=== PATIENT | female | born 1975 | race Caucasian/White ===

== ENCOUNTER 2019-02-17 09:03 | Emergency (ER) | payer MEDICAID ==
--- NOTE | 2019-02-17 10:20 | UC ---
Dental HPI - HPI Summary HPI Summary: 43 year old female with h/o poor dentation, cracked tooth x 2 weeks presents with right sided facial sweling x 24 hours, mild pain over jawline, no fever, chills. no difficulty breathing, swallowing, headache. Denies other symptoms. - History of Current Complaint Chief Complaint: UCGeneralIllness Stated Complaint: REACTION RT SIDE FACE Time Seen by Provider: 02/17/19 10:07 Hx Obtained From: Patient Hx Last Menstrual Period: 02/03/19 ?: No Onset/Duration: Sudden Onset, Lasting Days Severity: Mild Pain Intensity: 0 Pain Scale Used: 0-10 Numeric - Allergies/Home Medications Allergies/Adverse Reactions: Allergies Allergy/AdvReac Type Severity Reaction Status Date / Time No Known Allergies Allergy Verified 02/17/19 09:24 PMH/Surg Hx/FS Hx/Imm Hx Previously Healthy: Yes - Surgical History Surgical History: Yes Surgery Procedure, Year, and Place: 1 csec and a tubal - Social History Alcohol Use: Occasionally Substance Use Type: None Smoking Status (MU): Heavy Every Day Tobacco Smoker Review of Systems All Other Systems Reviewed And Are Negative: Yes Constitutional: Positive: Negative Skin: Positive: Other - patient has very red face, b/l, states this is normal for her ENT: Positive: Dental Pain, Other - facial swelling, right sided Is Patient Immunocompromised?: No Physical Exam Triage Information Reviewed: Yes Appearance: Well-Appearing, No Pain Distress, Well-Nourished Vital Signs: Initial Vital Signs Temp 96.4 F 02/17/19 09:20 Pulse 86 02/17/19 09:20 Resp 16 02/17/19 09:20 BP 146/96 02/17/19 09:20 Pulse Ox 100 02/17/19 09:20 Vital Signs Reviewed: Yes Eyes: Positive: Conjunctiva Clear. Negative: Conjunctiva Inflamed ENT: Positive: Pharynx normal, TMs normal, Dental tenderness - lower jaw line with fullness over internal mucosa Right sided, no abscess palpable, no drainge noted. most lower teeth absces, upper teeth with muliple caries and fracture seen at right canine, Uvula midline. Negative: Pharyngeal erythema, Nasal congestion, Nasal drainage, Tonsillar swelling, Tonsillar exudate, Sinus tenderness Neck: Positive: Supple, Nontender, No Lymphadenopathy Respiratory: Positive: Chest non-tender, Lungs clear, Normal breath sounds, No respiratory distress, No accessory muscle use. Negative: Crackles, Rhonchi, Stridor, Wheezing Cardiovascular: Positive: RRR, No Murmur Neurological Exam: Normal Psychological Exam: Normal Skin: Positive: Other - erythema over entire face, patient states baseline. Non-tender to palpation over entire face without TTP over area, no angioedema noted. Dental Complaint Course/Dx - Course Course Of Treatment: Antibiotics, follow up in ER if no improvement or worsening within 1-2 days, follow up with dentist - Differential Dx/Diagnosis Differential Diagnosis/Dx: Dental Caries Provider Diagnosis: Dental caries, Cellulitis of face Discharge - Sign-Out/Discharge Documenting (check all that apply): Patient Departure All imaging exams completed and their final reports reviewed: No Studies - Discharge Plan Condition: Fair Disposition: HOME Prescriptions: Amoxicillin/Clavulanate TAB* [Augmentin TAB 875*] 875 mg PO BID #20 tab Patient Education Materials: Cellulitis (ED) Referrals: No Primary Care Phys,NOPCP [Primary Care Provider] - Additional Instructions: - Antibiotics as directed - Follow up with dentist within 1 week for treatment - GO to ER with shortness of breath, increased swelling, difficulty swallowing, increased pain, fever - Motrin as needed for pain - Billing Disposition and Condition Condition: FAIR Disposition: Home
== END 2019-02-17 10:28 | disposition home or self-care (01) ==
LOC: UCEAST 09:03
DX: K03.81 Cracked tooth (principal); K02.9 Dental caries, unspecified; L03.211 Cellulitis of face; F17.200 Nicotine dependence, unspecified, uncomplicated
CPT/HCPCS: 99202; G0463